=== PATIENT | female | born 2000 | race Two or more races ===

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

== ENCOUNTER 2018-02-21 10:20 | Emergency (ER) | payer BC, OTHER ==
[2018-02-21 10:58] LABS: BASO % 0.6 % (0.0-1.0); EOS # 0.1 10^3/uL (0.0-0.50); EOS % 2.1 % (0.0-3.0); HEMATOCRIT 37.7 % (36.0-47.0); HEMOGLOBIN 12.9 g/dl (12.0-15.5); LYMPH # 1.4 10^3/uL (1.5-6.5); LYMPH % 39.9 % (24.0-44.0); MEAN CORPUSCULAR HEMOGLOBIN 30.7 pg (27.0-33.0); MEAN CORPUSCULAR HGB CONC 34.2 g/dl (32.0-36.5); MEAN CORPUSCULAR VOLUME 89.8 fl (80.0-96.0); MONO # 0.4 10^3/uL (0.0-0.8); MONO % 11.4 % (0.0-5.0); NEUTROPHILS # 1.6 10^3/uL (1.8-7.7); PLATELET COUNT, AUTOMATED 281 10^3/uL (150-450); RED CELL DISTRIBUTION WIDTH 12.4 % (11.5-14.5); WHITE BLOOD COUNT 3.4 10^3/uL (4.0-10.0)
[2018-02-21 11:17] LABS: CONTROL LINE HCG INT CTR LINE PRESENT; HCG, SERUM QUALITATIVE NEGATIVE (NEGATIVE)
[2018-02-21 11:25] LABS: ALBUMIN 4.2 GM/DL (3.2-5.2); ALBUMIN/GLOBULIN RATIO 1.11 (1.00-1.93); ALKALINE PHOSPHATASE 62 U/L (45-117); ALT/SGPT 64 U/L (12-78); AMYLASE 67 U/L (25-115); ANION GAP 4 MEQ/L (8-16); AST/SGOT 30 U/L (7-37); BILIRUBIN,DIRECT < 0.1 MG/DL (0.0-0.2); BILIRUBIN,TOTAL 0.3 MG/DL (0.2-1.0); BLOOD UREA NITROGEN 15 MG/DL (7-18); CALCIUM LEVEL 8.8 MG/DL (8.5-10.1); CARBON DIOXIDE LEVEL 30 MEQ/L (21-32); CHLORIDE LEVEL 108 MEQ/L (98-107); CREATININE FOR GFR 0.81 MG/DL (0.55-1.30); GLUCOSE, FASTING 88 MG/DL (70-100); LIPASE 147 U/L (73-393); POTASSIUM SERUM 3.9 MEQ/L (3.5-5.1); SODIUM LEVEL 142 MEQ/L (136-145)
== END 2018-02-21 12:31 | disposition home or self-care (01) ==
LOC: M ED 10:20
DX: K58.9 Irritable bowel syndrome, unspecified (principal); R10.11 Right upper quadrant pain; R11.0 Nausea; G43.909 Migraine, unspecified, not intractable, without status migrainosus; Z79.3 Long term (current) use of hormonal contraceptives
CPT/HCPCS: 76705

== ENCOUNTER 2019-05-29 23:22 | Emergency (ER) | payer BC, OTHER ==
[~2019-05-29] VITALS: Ht 167.6 cm; Wt 65.5 kg
[~2019-05-29 23:22] MED LIST: MEDR1VL IM; ZOFR4TAB14 PO
[2019-05-30] MEDS ORDERED: PYRI1TAB5 PO (01:26)
[2019-05-30] MEDS ORDERED: KEFL500C17 PO (01:26)
[2019-05-30] MEDS ORDERED: PHENAZOPYRIDINE 100 MG TAB PO ONE (01:30)
[2019-05-30] MEDS ORDERED: CEPHALEXIN 500 MG CAP PO ONE (01:30)
[2019-05-30 01:42] VITALS: BP 109/68
== END 2019-05-30 01:49 | disposition home or self-care (01) ==
LOC: M ED 23:22
DX: N10 Acute pyelonephritis (principal); G43.909 Migraine, unspecified, not intractable, without status migrainosus

== ENCOUNTER 2019-06-18 08:16 | Emergency (ER) | payer BC, OTHER ==
[~2019-06-18] VITALS: Ht 170.2 cm; Wt 68.2 kg
[~2019-06-18 08:16] MED LIST changes: +KEFL500C17 PO; +PYRI1TAB5 PO
[2019-06-18 09:42] LABS: HEMATOCRIT 35.5 % (36.0-47.0); HEMOGLOBIN 12.1 g/dl (12.0-15.5); MEAN CORPUSCULAR HEMOGLOBIN 31.3 pg (27.0-33.0); MEAN CORPUSCULAR HGB CONC 34.1 g/dl (32.0-36.5); PLATELET COUNT, AUTOMATED 275 10^3/uL (150-450); RED BLOOD COUNT 3.86 10^6/uL (4.00-5.40)
[2019-06-18 10:13] LABS: BLOOD UREA NITROGEN 10 MG/DL (7-18); CALCIUM LEVEL 8.6 MG/DL (8.5-10.1); CARBON DIOXIDE LEVEL 29 MEQ/L (21-32); CHLORIDE LEVEL 108 MEQ/L (98-107); GLOMERULAR FILTRATION RATE > 60.0 (>60); GLUCOSE, FASTING 89 MG/DL (70-100); POTASSIUM SERUM 4.1 MEQ/L (3.5-5.1); SODIUM LEVEL 140 MEQ/L (136-145)
--- NOTE | 2019-06-18 11:38 | REP ---
PELVIC ULTRASOUND: Real-time sonographic evaluation of the pelvis performed utilizing transabdominal and endovaginal technique. Uterus measures 7.9 x 4.0 x 5.1 cm. Endometrial thickness is 14 mm. No gestational sac is seen in the endometrial canal. Trace free fluid is seen in the cul-de-sac. Right ovary measures 4.8 x 3.2 x 2.6 cm and left ovary 3.1 x 2.0 x 1.7 cm. An echogenic area in the right ovary measures 1.9 cm in diameter and it could represent a complex corpus luteum. There is no torsion. Ectopic cannot be excluded. Suggest correlation with serial quantitative beta hCG values and followup ultrasound as necessary. Electronically Signed by Nic Paulson MD 06/19/2019 09:38 A
[2019-06-18 11:48] VITALS: BP 125/70
== END 2019-06-18 12:03 | disposition home or self-care (01) ==
LOC: M ED 08:16
DX: O20.0 Threatened abortion (principal); Z3A.01 Less than 8 weeks gestation of pregnancy; Z87.891 Personal history of nicotine dependence; Z87.440 Personal history of urinary (tract) infections

== ENCOUNTER 2019-06-20 18:56 | Emergency (ER) | payer BC, OTHER ==
[~2019-06-20] VITALS: Ht 160 cm; Wt 69.8 kg
[2019-06-20 19:38] LABS: BASO % 0.5 % (0.0-1.0); EOS # 0.1 10^3/uL (0.0-0.50); EOS % 2.1 % (0.0-3.0); HEMATOCRIT 34.7 % (36.0-47.0); HEMOGLOBIN 11.9 g/dl (12.0-15.5); LYMPH # 1.8 10^3/uL (1.5-6.5); LYMPH % 40.4 % (24.0-44.0); MEAN CORPUSCULAR HEMOGLOBIN 30.9 pg (27.0-33.0); MEAN CORPUSCULAR HGB CONC 34.3 g/dl (32.0-36.5); MEAN CORPUSCULAR VOLUME 90.1 fl (80.0-96.0); MONO # 0.6 10^3/uL (0.0-0.8); MONO % 13.9 % (0.0-5.0); NEUTROPHILS # 1.9 10^3/uL (1.8-7.7); NEUTROPHILS % 43.1 % (36.0-66.0); PLATELET COUNT, AUTOMATED 279 10^3/uL (150-450); RED BLOOD COUNT 3.85 10^6/uL (4.00-5.40); WHITE BLOOD COUNT 4.3 10^3/uL (4.0-10.0)
--- NOTE | 2019-06-20 20:51 | REPVR ---
EXAM: US , Transvaginal EXAM DATE/TIME: 06/20/2019 8:01 PM CLINICAL HISTORY: 19 years old, female; complicated by abdominal or pelvic pain; Lower; First trimester; Gestational age or lmp: 05/09/19; ; Additional info: Vaginal bleeding, R/O ectopic TECHNIQUE: Imaging protocol: Real-time transvaginal obstetrical ultrasound of the maternal pelvis and a first trimester with image documentation. Transvaginal imaging was used for better evaluation of the fetus and adnexa. COMPARISON: No relevant prior studies available. FINDINGS: GESTATION: Gestation: No intrauterine gestation is seen. MATERNAL: Uterus: The uterus measures 8.4 cm in its cephalocaudad dimension and 4.6 cm in its AP dimension. The endometrium measures 10 mm. No gestational sac is seen. Right adnexa: Mild free fluid is noted in the right adnexa and cul-de-sac. The right ovary measures 2.4 x 4.0 x 2.4 cm and demonstrates blood flow with a ring of fire around a thickwalled corpus luteum cyst which measures 14 x 20 x 16 mm. Left adnexa: The left ovary measures 2.0 x 2.2 x 2.2 cm and demonstrates blood flow. IMPRESSION: 1. No gestational sac is seen. Findings may reflect recent spontaneous AB or possibly very early intrauterine gestation. Ectopic is not excluded. Serial beta hCG levels may be of benefit. 2. Right ovarian corpus luteum cyst measuring 14 x 20 x 16 mm. 3. Mild free fluid which is nonspecific and may be physiologic. Electronically signed by: Ronaldo Nicolas On 06/20/2019 20:51:03 PM
[2019-06-20 22:52] VITALS: BP 122/67
== END 2019-06-20 22:53 | disposition home or self-care (01) ==
LOC: M ED 18:56
DX: O03.9 Complete or unspecified spontaneous abortion without complication (principal)

== ENCOUNTER → 2019-06-20 | Outpatient (CLI) | payer BC, OTHER | LOC: M LRY 10:15 | PROVIDERS: ATTEND Physician Assistant Medical | DX: O20.0 Threatened abortion (principal); Z3A.00 Weeks of gestation of pregnancy not specified ==

== ENCOUNTER → 2019-08-02 | Outpatient (CLI) | payer BC, OTHER ==
--- NOTE | 2019-08-02 13:43 | REP ---
REASON: Chest tightness. PRIORS: None. FINDINGS: The superior mediastinal structures are midline. The cardiac silhouette is unremarkable in size, shape, and position. The diaphragmatic surfaces of the lungs are regular, and the costophrenic angles are clear. The pulmonary palmer are clear. The imaged osseous structures are intact. IMPRESSION: There is no acute cardiopulmonary disease. Electronically Signed by Kevin Martinez DO 08/02/2019 02:06 P
== END ==
LOC: M LRY 12:18
PROVIDERS: ATTEND Nurse Practitioner Family
DX: R07.89 Other chest pain (principal)

== ENCOUNTER 2019-09-15 19:01 | Emergency (ER) | payer BC, OTHER ==
[~2019-09-15] VITALS: Ht 170.2 cm; Wt 68.0 kg
[2019-09-15 20:37] LABS: APPEARANCE, URINE HAZY (CLEAR); BACTERIA, URINE AUTO 1+ (NEGATIVE); BILIRUBIN, URINE AUTO NEGATIVE (NEGATIVE); BLOOD, URINE BLOOD NEGATIVE (NEGATIVE); COLOR, URINE YELLOW (YELLOW); GLUCOSE, URINE (UA) AUTO NEGATIVE (NEGATIVE); KETONE, URINE AUTO 2+ mg/dL (NEGATIVE); LEUKOCYTE ESTERASE, URINE AUTO NEGATIVE (NEGATIVE); MUCUS, URINE LARGE (NEGATIVE); NITRITE, URINE AUTO POSITIVE (NEGATIVE); PROTEIN, URINE AUTO 1+ mg/dL (NEGATIVE); RBC, URINE AUTO 2 /HPF (0-3); SQUAMOUS EPITHELIAL CELL UR AU 6 /HPF (0-6); UROBILINOGEN, URINE AUTO 0.2 mg/dL (0.0-2.0); WBC, URINE AUTO 6 /HPF (0-3)
--- NOTE | 2019-09-15 20:56 | REPVR ---
PROCEDURE INFORMATION: Exam: US First Trimester, Transabdominal Exam date and time: 09/15/2019 8:38 PM Clinical history: 19 years old, female; Lmp or gestational age (in weeks): 11w 4d; Other: HX of miscarriage and preg test positive, cramping; ; Additional info: Cramping, unclear gestational age TECHNIQUE: Imaging protocol: Real-time transabdominal obstetrical ultrasound of the maternal pelvis and a first trimester , less than 14 weeks 0 days, with image documentation. COMPARISON: No relevant prior studies available. FINDINGS: GESTATION: Gestation: Single uterine gestation Heart rate: 171 beats per minute Placenta: Unremarkable. Posterior. No subchorionic bleed. Amniotic fluid: Amniotic and chorionic fluid are normal for gestational age. BIOMETRY: Estimated gestational age: 11 weeks 4 days using crown-rump length of 4.8 cm. MATERNAL: Uterus: Unremarkable. Cervix: Unremarkable. Right adnexa: Unremarkable. Left adnexa: Unremarkable. Intraperitoneal: No intraperitoneal free fluid. IMPRESSION: Unremarkable gestation of 11 weeks 4 days as described above. Detailed structural survey can be performed between 19-20 weeks if clinically desired. Electronically signed by: Idris Garcia On 09/15/2019 20:55:54 PM
[2019-09-15 21:05] VITALS: BP 116/59
== END 2019-09-15 21:08 | disposition home or self-care (01) ==
LOC: M ED 19:01
DX: Z32.01 Encounter for pregnancy test, result positive (principal); Z3A.11 11 weeks gestation of pregnancy; O99.331 Smoking (tobacco) complicating pregnancy, first trimester

== ENCOUNTER → 2019-11-20 | Outpatient (REF) | payer OTHER | LOC: M SFHCLERA 20:08 | PROVIDERS: ATTEND Physician Assistant | DX: N39.0 Urinary tract infection, site not specified (principal) ==

== ENCOUNTER → 2020-01-10 | Outpatient (CLI) | payer BC, OTHER ==
[2020-01-10 16:58] LABS: BASO % 0.1 % (0.0-1.0); EOS # 0.1 10^3/uL (0.0-0.5); EOS % 1.2 % (0.0-3.0); HEMATOCRIT 29.2 % (36.0-47.0); HEMOGLOBIN 9.6 g/dl (12.0-15.5); LYMPH # 1.6 10^3/uL (1.5-5.0); LYMPH % 20.6 % (24.0-44.0); MEAN CORPUSCULAR HEMOGLOBIN 29.2 pg (27.0-33.0); MEAN CORPUSCULAR HGB CONC 32.9 g/dl (32.0-36.5); MEAN CORPUSCULAR VOLUME 88.8 fl (80.0-96.0); MONO # 0.8 10^3/uL (0.0-0.8); NEUTROPHILS # 5.3 10^3/uL (1.5-8.5); NEUTROPHILS % 67.7 % (36.0-66.0); PLATELET COUNT, AUTOMATED 256 10^3/uL (150-450); RED BLOOD COUNT 3.29 10^6/uL (4.00-5.40); WHITE BLOOD COUNT 7.8 10^3/uL (4.0-10.0)
== END ==
LOC: M LAB 14:45
PROVIDERS: ATTEND Obstetrics & Gynecology Obstetrics
DX: Z34.82 Encounter for supervision of other normal pregnancy, second trimester (principal); Z36.89 Encounter for other specified antenatal screening

== ENCOUNTER → 2022-05-09 | Outpatient (REF) | payer OTHER | LOC: M LAB REF 15:37 | PROVIDERS: ATTEND Physician Assistant | DX: B08.5 Enteroviral vesicular pharyngitis (principal) ==

== ENCOUNTER 2022-06-17 04:39 | Emergency (ER) | payer BC, OTHER ==
[~2022-06-17] VITALS: Ht 170.2 cm; Wt 66.0 kg
[2022-06-17] MEDS ORDERED: KETOROLAC 30 MG/ML 1ML VIAL IV ONE (05:25)
[2022-06-17] MEDS ORDERED: ACETAMINOPHEN TAB 650MG DOSE (2X325MG) PO ONE (05:25)
[2022-06-17] MEDS ORDERED: NS 1,000 ML IV ONE (05:30)
[2022-06-17] MEDS ORDERED: ONDANSETRON 4MG 2ML VIAL IV ONE (05:40)
[2022-06-17 06:09] LABS: BASO % 0.2 % (0.0-1.0); HEMATOCRIT 36.1 % (36.0-47.0); HEMOGLOBIN 12.2 g/dl (12.0-15.5); LYMPH % 8.5 % (24.0-44.0); MEAN CORPUSCULAR HEMOGLOBIN 30.9 pg (27.0-33.0); MEAN CORPUSCULAR HGB CONC 33.8 g/dl (32.0-36.5); MEAN CORPUSCULAR VOLUME 91.4 fl (80.0-96.0); MONO % 8.4 % (2.0-8.0); NEUTROPHILS % 82.5 % (36.0-66.0); PLATELET COUNT, AUTOMATED 292 10^3/uL (150-450); RED BLOOD COUNT 3.95 10^6/uL (4.00-5.40); WHITE BLOOD COUNT 12.1 10^3/uL (4.0-10.0)
[2022-06-17] MEDS ORDERED: cefTRIAXone SOD 1 GM in D5W MINI-BAG PLUS 50 ML IV ONE (06:35)
[2022-06-17 06:36] LABS: BACTERIA, URINE LARGE AMOUNT; HCG, SERUM QUALITATIVE NEGATIVE (NEGATIVE); RBC, URINE NONE SEEN /hpf (0-3); SQUAMOUS EPITHELIAL CELL URINE MOD AMOUNT /hpf (SMALL AMT)
[2022-06-17 06:37] LABS: HYALINE CAST, URINE NONE SEEN /lpf (0-1)
[2022-06-17 06:41] LABS: BLOOD UREA NITROGEN 6 MG/DL (7-18); CALCIUM LEVEL 9.2 MG/DL (8.5-10.1); CARBON DIOXIDE LEVEL 28 MEQ/L (21-32); CHLORIDE LEVEL 104 MEQ/L (98-107); CREATININE FOR GFR 0.86 MG/DL (0.55-1.30); GLOMERULAR FILTRATION RATE > 60.0 (>60); GLUCOSE, FASTING 109 MG/DL (70-100); POTASSIUM SERUM 3.5 MEQ/L (3.5-5.1); SODIUM LEVEL 139 MEQ/L (136-145)
[2022-06-17 06:54] LABS: RSV AMPLIFICATION NEGATIVE (NEGATIVE)
[2022-06-17 07:17] VITALS: BP 109/66
[2022-06-17] MEDS ORDERED: BACT800T5 PO (08:51)
== END 2022-06-17 10:00 | disposition home or self-care (01) ==
LOC: M ED 04:39
DX: N10 Acute pyelonephritis (principal)
CPT/HCPCS: 74176; 80048; 81000; 81015; 83605; 84703; 85025; 87086; 87631; 96365; 96366; 96375; 99284; J0696; J1885; J2405

== ENCOUNTER 2023-03-05 00:02 | Outpatient (CLI) | payer BC, OTHER ==
[~2023-03-05] VITALS: Ht 167.6 cm; Wt 74.2 kg
[~2023-03-05 00:02] MED LIST changes: +BACT800T5 PO
[2023-03-05] MEDS ORDERED: PRENTAB9 PO (00:11)
[2023-03-05 00:21] VITALS: BP 147/87
[2023-03-05] MEDS ORDERED: URSO300C3 PO (00:33)
[2023-03-05 00:35] VITALS: BP 136/70
[2023-03-05] MEDS ORDERED: HOME MED LIST COMPLETE! XX SCH (00:35)
[2023-03-05] MEDS ORDERED: LR 1,000 ML IV ONE (00:45)
[2023-03-05 01:36] LABS: APPEARANCE, URINE HAZY (CLEAR); BACTERIA, URINE AUTO 1+ (NEGATIVE); BILIRUBIN, URINE AUTO NEGATIVE (NEGATIVE); BLOOD, URINE BLOOD NEGATIVE (NEGATIVE); COLOR, URINE YELLOW (YELLOW); GLUCOSE, URINE (UA) AUTO NEGATIVE (NEGATIVE); KETONE, URINE AUTO NEGATIVE (NEGATIVE); LEUKOCYTE ESTERASE, URINE AUTO TRACE (NEGATIVE); MUCUS, URINE SMALL (NEGATIVE); NITRITE, URINE AUTO POSITIVE (NEGATIVE); PROTEIN, URINE AUTO NEGATIVE (NEGATIVE); RBC, URINE AUTO 1 /HPF (0-3); SPECIFIC GRAVITY URINE AUTO 1.018 (1.002-1.035); SQUAMOUS EPITHELIAL CELL UR AU 6 /HPF (0-6); UROBILINOGEN, URINE AUTO 0.2 mg/dL (0.0-2.0); WBC, URINE AUTO 4 /HPF (0-3)
[2023-03-05 01:40] LABS: MEAN CORPUSCULAR HEMOGLOBIN 29.3 pg (27.0-33.0); MEAN CORPUSCULAR HGB CONC 33.3 g/dl (32.0-36.5); PLATELET COUNT, AUTOMATED 279 10^3/uL (150-450); RED BLOOD COUNT 3.41 10^6/uL (4.00-5.40); WHITE BLOOD COUNT 7.8 10^3/uL (4.0-10.0)
[2023-03-05] MEDS ORDERED: LR 1,000 ML IV SCH (01:45)
[2023-03-05 02:00] LABS: ALKALINE PHOSPHATASE 50 U/L (46-116); ALT/SGPT 10 U/L (7.0-40); AST/SGOT 16 U/L (<34); BILIRUBIN,TOTAL 0.3 MG/DL (0.3-1.2); BLOOD UREA NITROGEN 7 MG/DL (9-23); CALCIUM LEVEL 7.8 MG/DL (8.5-10.1); CARBON DIOXIDE LEVEL 23 MMOL/L (20-31); CHLORIDE LEVEL 108 MMOL/L (98-107); CREATININE FOR GFR 0.44 MG/DL (0.55-1.30); GLOMERULAR FILTRATION RATE > 60.0 (>60); GLUCOSE, FASTING 85 MG/DL (60-100); POTASSIUM SERUM 3.6 MMOL/L (3.5-5.1); SODIUM LEVEL 137 MMOL/L (136-145); TOTAL PROTEIN 6.1 G/DL (5.7-8.2)
[2023-03-05 05:00] VITALS: BP 107/53
== END 2023-03-05 07:56 | disposition home or self-care (01) ==
LOC: M LDO 00:02
PROVIDERS: ATTEND Obstetrics & Gynecology
DX: O21.2 Late vomiting of pregnancy (principal); Z3A.26 26 weeks gestation of pregnancy

== ENCOUNTER → 2023-03-09 | Outpatient (CLI) | payer BC, OTHER ==
[~2023-03-09] MED LIST changes: +PRENTAB9 PO; +URSO300C3 PO
[2023-03-09 15:37] LABS: HEMATOCRIT 30.6 % (36.0-47.0); MEAN CORPUSCULAR HEMOGLOBIN 29.4 pg (27.0-33.0); MEAN CORPUSCULAR HGB CONC 32.7 g/dl (32.0-36.5); PLATELET COUNT, AUTOMATED 274 10^3/uL (150-450); WHITE BLOOD COUNT 8.6 10^3/uL (4.0-10.0)
[2023-03-09 16:07] LABS: TOTAL 25(OH) VITAMIN D 27.7 NG/ML (20.0-100.0)
== END ==
LOC: M LAB 13:47
PROVIDERS: ATTEND Obstetrics & Gynecology
DX: Z34.82 Encounter for supervision of other normal pregnancy, second trimester (principal)

== ENCOUNTER 2024-04-08 23:25 | Inpatient (IN) | payer BC, MEDICAID, OTHER ==
[~2024-04-08] VITALS: Ht 165.1 cm; Wt 62.7 kg
[2024-04-09 00:35] LABS: HEMATOCRIT 34.1 % (36.0-47.0); HEMOGLOBIN 11.3 g/dl (12.0-15.5); MEAN CORPUSCULAR HGB CONC 33.1 g/dl (32.0-36.5); MEAN CORPUSCULAR VOLUME 84.6 fl (80.0-96.0); PLATELET COUNT, AUTOMATED 345 10^3/uL (150-450); RED BLOOD COUNT 4.03 10^6/uL (4.00-5.40); WHITE BLOOD COUNT 4.3 10^3/uL (4.0-10.0)
[2024-04-09 00:38] LABS: AMPHETAMINES LEVEL URINE NEGATIVE (NEGATIVE); BARBITURATES URINE NEGATIVE (NEGATIVE); BENZODIAZEPINES URINE NEGATIVE (NEGATIVE); CANNABINOIDS URINE NEGATIVE (NEGATIVE); COCAINE METABOLITE URINE NEGATIVE (NEGATIVE); METHADONE URINE NEGATIVE (NEGATIVE); OPIATES URINE NEGATIVE (NEGATIVE); PHENCYCLIDINE URINE NEGATIVE (NEGATIVE)
[2024-04-09 00:40] LABS: ETHYL ALCOHOL (ETHANOL) 0.114 % (0.000-0.010)
[2024-04-09 00:42] LABS: ALBUMIN 4.5 G/DL (3.2-5.2); ALKALINE PHOSPHATASE 51 U/L (46-116); ALT/SGPT 15 U/L (7.0-40); AST/SGOT 9 U/L (<34); BILIRUBIN,DIRECT < 0.1 MG/DL (<0.4); BILIRUBIN,TOTAL 0.4 MG/DL (0.3-1.2); BLOOD UREA NITROGEN 9 MG/DL (9-23); CALCIUM LEVEL 9.5 MG/DL (8.5-10.1); CARBON DIOXIDE LEVEL 24 MMOL/L (20-31); CHLORIDE LEVEL 107 MMOL/L (98-107); CREATININE FOR GFR 0.75 MG/DL (0.55-1.30); GLOMERULAR FILTRATION RATE > 60.0 (>60); GLUCOSE, FASTING 98 MG/DL (60-100); POTASSIUM SERUM 3.7 MMOL/L (3.5-5.1); SALICYLATE LEVEL < 3.0 MG/DL (<30); SODIUM LEVEL 138 MMOL/L (136-145); TOTAL PROTEIN 7.4 G/DL (5.7-8.2)
[2024-04-09 00:44] LABS: THYROID STIMULATING HORMONE 1.221 uIU/ML (0.55-4.78)
[2024-04-09 00:48] LABS: HCG, SERUM QUALITATIVE NEGATIVE (NEGATIVE)
[2024-04-09] MEDS ORDERED: HOME MED LIST COMPLETE! XX SCH (07:45)
[2024-04-09] MEDS ORDERED: MAALOX 30 ML SUSP *UDC PO PRN (14:10)
[2024-04-09] MEDS ORDERED: LORazepam 2 MG TAB PO PRN (14:10)
[2024-04-09] MEDS ORDERED: traZODone 50 MG TAB PO PRN (14:10)
[2024-04-09] MEDS ORDERED: diphenhydrAMINE 25MG CAP PO PRN (14:10)
[2024-04-09] MEDS ORDERED: ACETAMINOPHEN TAB 650MG DOSE (2X325MG) PO PRN (14:10)
[2024-04-09] MEDS ORDERED: MOM 30ML SUSPENSION UDC PO PRN (14:10)
[2024-04-09] MEDS ORDERED: IBUPROFEN 400MG TAB PO PRN (14:10)
[2024-04-09] MEDS: FOLIC ACID 1MG TAB PO SCH (14:19)
[2024-04-09] MEDS: MULTIVITAMINS/MINERALS THERAP 1 TAB PO SCH (14:19)
[2024-04-09] MEDS: THIAMINE 100 MG TAB PO SCH (14:19)
[2024-04-09 22:00] VITALS: BP 127/69; TEMP 97.5; O2SAT 100
[2024-04-10 06:00] VITALS: BP 126/66
[2024-04-10 06:34] VITALS: BP 126/66; TEMP 97.3; O2SAT 100
[2024-04-10] MEDS: NICOTINE 21MG/24HR 1 EA TRANSDERMAL TD SCH (12:53)
[2024-04-10 14:00] VITALS: BP 128/72
[2024-04-10 18:20] VITALS: BP 111/61; TEMP 97.9
[2024-04-11 06:58] VITALS: BP 109/67
== END 2024-04-11 10:19 | disposition home or self-care (01) | DRG 754 ==
LOC: M ED 23:25 → M ED INP 04-09 14:08 → M PSY 04-09 21:12
PROVIDERS: ADMIT Student in an Organized Health Care Education/Training Program; ATTEND Student in an Organized Health Care Education/Training Program
DX: F32.A Depression, unspecified (principal); R45.851 Suicidal ideations; F41.9 Anxiety disorder, unspecified; F17.200 Nicotine dependence, unspecified, uncomplicated; Z91.51 Personal history of suicidal behavior; Z90.49 Acquired absence of other specified parts of digestive tract

== ENCOUNTER → 2024-06-11 | Outpatient (CLI) | payer OTHER | LOC: M WHC 07:38 | PROVIDERS: ATTEND Physician Assistant Medical | DX: R10.2 Pelvic and perineal pain (principal); R93.89 Abnormal findings on diagnostic imaging of other specified body structures ==